=== PATIENT | male | born 1990 | race Caucasian/White ===

== ENCOUNTER 2018-11-27 13:37 | Emergency (ER) | payer SELFPAY ==
[2018-11-27 13:56] VITALS: BP 132/99
--- NOTE | 2018-11-27 14:04 | UC ---
UC General HPI - HPI Summary HPI Summary: PT HAD A SORE THROAT X 1 DAY ABOUT 7 DAYS AGO. HE THEN DEVELOPED A WORSENING COUGH WITH CONGESTION AND WHEEZING SINCE THEN. + SOB AND SUBJECTIVE FEVER. NO CP OR ASTHMA. TAKING OTC COUGH MEDICATION WITH NO RELIEF. - History of Current Complaint Chief Complaint: UCRespiratory Stated Complaint: COUGH CONGESTION Time Seen by Provider: 11/27/18 13:53 Hx Obtained From: Patient Onset/Duration: Gradual Onset Timing: Constant Pain Intensity: 0 Associated Signs & Symptoms: Negative: Chest Pain - Allergy/Home Medications Allergies/Adverse Reactions: Allergies Allergy/AdvReac Type Severity Reaction Status Date / Time No Known Allergies Allergy Verified 11/27/18 13:57 Home Medications: Home Medications Dextromethorphan Polistirex [Robitussin ER] 30 ml PO ONCE 11/27/18 [History Confirmed 11/27/18] PMH/Surg Hx/FS Hx/Imm Hx Previously Healthy: Yes - Surgical History Surgical History: None - Family History Known Family History: Positive: Unknown - Social History Lives: With Family Alcohol Use: Occasionally Substance Use Type: None Smoking Status (MU): Never Smoked Tobacco Review of Systems All Other Systems Reviewed And Are Negative: Yes Constitutional: Positive: Fever - subjective Respiratory: Positive: Shortness Of Breath, Cough Cardiovascular: Negative: Palpitations, Chest Pain Physical Exam Triage Information Reviewed: Yes Appearance: Well-Appearing Vital Signs: Initial Vital Signs Temp 98 F 11/27/18 13:51 Pulse 89 11/27/18 13:51 Resp 18 11/27/18 13:51 BP 132/99 11/27/18 13:51 Pulse Ox 100 11/27/18 13:51 Vital Signs Reviewed: Yes Eyes: Positive: Conjunctiva Clear ENT: Positive: Pharynx normal, TMs normal. Negative: Nasal congestion, Nasal drainage Neck: Positive: Supple, Nontender, No Lymphadenopathy Respiratory: Positive: No respiratory distress, Decreased breath sounds, Other: - mild expiratory wheezes and occasional rhonchi. cough is bronchospastic. Cardiovascular: Positive: RRR, No Murmur Abdomen Description: Positive: Nontender Musculoskeletal: Positive: ROM Intact Neurological: Positive: Alert Psychological: Positive: Age Appropriate Behavior Skin Exam: Normal Course/Dx - Differential Dx - Multi-Symptom Differential Diagnoses: Other - ill x 7 days and worsening despite otc tx. also subjective fever thus will tx for presumptive bacterial infection and bronchospasm. nothing focal on lung exam to suggest pneumonia. - Diagnoses Provider Diagnosis: Cough, Bronchospasm, acute Discharge - Sign-Out/Discharge Documenting (check all that apply): Patient Departure All imaging exams completed and their final reports reviewed: No Studies - Discharge Plan Condition: Stable Disposition: HOME Prescriptions: Albuterol HFA INHALER* [Ventolin HFA Inhaler*] 2 puff INH Q6H #1 mdi Azithromycin TAB* [Zithromax TAB (Z-ИВАН) 250 mg #6 tabs] 2 tab PO .TODAY, THEN 1 DAILY #1 иван predniSONE [Prednisone 20 MG TAB] 40 mg PO DAILY 3 Days #6 tablet Patient Education Materials: Bronchospasm (ED), Acute Cough (ED) Referrals: No Primary Care Phys,NOPCP [Primary Care Provider] - Additional Instructions: FOLLOW UP WITH YOUR PROVIDER AT [facility] IN 7 DAYS FOR A RECHECK OR SOONER IF WORSE. - Billing Disposition and Condition Condition: STABLE Disposition: Home
== END 2018-11-27 14:14 | disposition home or self-care (01) ==
LOC: UCCORT 13:37
DX: J98.01 Acute bronchospasm (principal)
CPT/HCPCS: 99212; G0463